=== PATIENT | female | born 1950 | race Caucasian/White ===

== ENCOUNTER 2018-10-17 17:12 | Emergency (ER) | payer MEDICARE, OTHER ==
[~2018-10-17] VITALS: Ht 162.6 cm; Wt 63.5 kg
[2018-10-17 17:17] VITALS: BP 125/76
--- NOTE | 2018-10-17 17:39 | NUR ---
CALLED THE OFFICE OF DR KING AND PAGE WAS SENT OUT.
--- NOTE | 2018-10-17 17:48 | NUR ---
PT S[facility] HERE [facility] FOR POSS PICC LINE SITE INFECTION ON RADHA. PT AAOX4, VSS. DENIES SOB, DIZZINESS, N/V, WEAKNESS @ THIS TIME. PT SEEN & EVAL'D BY DR. LEE. WILL CONT TO MONITOR.
--- NOTE | 2018-10-17 18:54 | NUR ---
PT REFUSED TO REPLACE PICC LINE ONLY REMOVAL, DR. LEE AWARE.
[2018-10-17] MEDS ORDERED: HYDROCODONE/APAP 10/325MG 1 EA TABLET PO ONE (19:00)
--- NOTE | 2018-10-17 19:09 | NUR ---
CALLED TRANSPORT ETA IS 2115 PER [facility] TRIP NUMBER [id number]
--- NOTE | 2018-10-17 19:25 | NUR ---
REMOVED 38 CM PICC LINE IN RADHA, PT HERO WELL. PICC LINE TIP INTACT, CUT & SENT TO LAB FOR CULTURE. Pressure and 4x4 applied to site & SECURED WITH KERLIX DRESSING. No bleeding noted.
--- NOTE | 2018-10-17 19:35 | NUR ---
PT LEFT AMA, REFUSED TO SIGN AMA FORM, DR. LEE AWARE.
--- NOTE | 2018-10-17 19:35 | NUR ---
PT LEFT VIA MD SHARI AWARE. PT STABLE, NAD NOTED UPON LEAVING ED & REFUSED TO SIGN ANY FORM.
== END 2018-10-17 19:40 | disposition left against medical advice (07) ==
LOC: ER 17:14
DX: T80.212A Local infection due to central venous catheter, initial encounter (principal); M19.90 Unspecified osteoarthritis, unspecified site; F32.9 Major depressive disorder, single episode, unspecified; I70.90 Unspecified atherosclerosis
CPT/HCPCS: 71045-TC; 87070-TC; A4606; A6402; C1751; Z7610

== ENCOUNTER 2022-07-04 12:02 | Emergency (ER) | payer MEDICARE, OTHER ==
[~2022-07-04] VITALS: Ht 172.7 cm; Wt 59.0 kg
--- NOTE | 2022-07-04 12:19 | NUR ---
BIBRA60 FROM SNF FOUND ON FLOOR PER STAFF. -KO LT FACIAL REDNESS & LT FA BRUISING. TACHY & WARM TO TOUCH PER EMS. GIVEN NS 500ML IN FIELD. PLACED ON BED, AAOX3, BREATHING EVEN AND UNLABORED SATURATING AT 96%RA.
--- NOTE | 2022-07-04 12:20 | NUR ---
LEASE ADMINISTRATION ANALYST AT BED SIDE
--- NOTE | 2022-07-04 13:05 | NUR ---
SWAB FOR COVID19 SENT TO LAB
[2022-07-04 13:17] LABS: BASOPHILS # (AUTO) 0.1 K/uL (0.0-0.2); BASOPHILS % (AUTO) 0.2 % (0.0-2.0); HEMATOCRIT 33 % (33-45); HEMOGLOBIN 10.3 g/dL (11.5-14.8); LYMPHOCYTES # (AUTO) 0.4 K/uL (0.8-4.8); LYMPHOCYTES % (AUTO) 1.9 % (20.0-44.0); MEAN CORPUSCULAR HGB CONC 31 g/dl (31.0-36.0); MEAN CORPUSCULAR VOLUME 78 fL (82-100); MONOCYTES # (AUTO) 0.9 K/uL (0.1-1.30); NEUTROPHILS # (AUTO) 21.1 K/uL (1.8-8.9); NEUTROPHILS % (AUTO) 93.9 % (43.0-81.0); PLATELET COUNT (AUTO) 452 K/uL (150-450); RED BLOOD CELL COUNT(AUTO) 4.24 MIL/uL (4.0-5.2); WHITE BLOOD COUNT (AUTO) 22.5 K/uL (4.3-11.0)
[2022-07-04 13:28] LABS: CALCIUM, SERUM 8.4 mg/dL (8.5-10.1); CREATININE 0.8 mg/dL (0.6-1.3); POTASSIUM 4.1 mmol/L (3.5-5.1)
--- NOTE | 2022-07-04 14:13 | NUR ---
[facility] CALLED FOR TRANSPORT ETA 90 MINS PER MARCO.
--- NOTE | 2022-07-04 15:45 | NUR ---
PATIENT DISCHARGE FLUME WORKER BY [facility] STAFF TO SNF IN A STABLE CONDITION
[2022-07-04 16:03] VITALS: BP 105/60
[2022-07-04] MEDS ORDERED: CRAN425C6 PO (18:35)
[2022-07-04] MEDS ORDERED: NA P133E RC (18:35)
[2022-07-04] MEDS ORDERED: HYDR4TAB57 PO ×3 (18:35)
[2022-07-04] MEDS ORDERED: ASCO-420 PO (18:35)
[2022-07-04] MEDS ORDERED: OMEG-167 PO (18:35)
[2022-07-04] MEDS ORDERED: LACT1CAP69 PO (18:35)
[2022-07-04] MEDS ORDERED: ASPI-1420 PO (18:35)
[2022-07-04] MEDS ORDERED: BISA10SU11 RC (18:35)
[2022-07-04] MEDS ORDERED: MAGN400O6 PO (18:40)
[2022-07-04] MEDS ORDERED: LIDO35.4 TP (18:40)
[2022-07-04] MEDS ORDERED: ASCO-352 PO (18:40)
[2022-07-04] MEDS ORDERED: NALO4SPR (18:40)
[2022-07-04] MEDS ORDERED: CALC1TAB30 PO (18:40)
[2022-07-04] MEDS ORDERED: CHOL100043 PO (18:40)
[2022-07-04] MEDS ORDERED: LIDO700A30 TP (18:40)
== END 2022-07-04 15:45 ==
LOC: ER 12:08
DX: Z04.3 Encounter for examination and observation following other accident (principal); Z91.81 History of falling; D72.829 Elevated white blood cell count, unspecified; R50.9 Fever, unspecified; Z20.822 Contact with and (suspected) exposure to COVID-19; K21.9 Gastro-esophageal reflux disease without esophagitis; M19.90 Unspecified osteoarthritis, unspecified site; Z88.6 Allergy status to analgesic agent; Z88.1 Allergy status to other antibiotic agents; Z88.0 Allergy status to penicillin; Z88.2 Allergy status to sulfonamides; Z88.8 Allergy status to other drugs, medicaments and biological substances; D50.9 Iron deficiency anemia, unspecified
CPT/HCPCS: 36415; 80048-TC; 85025-TC; C9803

== ENCOUNTER 2022-07-04 16:46 | Inpatient (IN) | payer MEDICARE, OTHER ==
[~2022-07-04] VITALS: Ht 152.4 cm; Wt 57.6 kg
--- NOTE | 2022-07-04 16:50 | NUR ---
BROUGHT BACK IN BY PA DUE TO "LETHARGIC" PER FACILITY STAFF SEEN EARLIER AFTER SHE WAS FOUND ON THE FLOOR. PLACED ON BED, AWAKE ALERT, RESPONDING TO VERBAL STIMULI, BREATHING EVEN AND UNLABORED SATURATING AT 95%.
--- NOTE | 2022-07-04 17:45 | NUR ---
PATIENT SERVICES MANAGER AT BED SIDE
[2022-07-04] MEDS: IV NS 0.9% 1,000 ML BAG IV ONE ×3 (17:55→20:00)
--- NOTE | 2022-07-04 18:11 | NUR ---
PATIENT TAKEN TO CT VIA JUNIOR
--- NOTE | 2022-07-04 18:29 | NUR ---
MOVE SHEET SUBMITTED.
[2022-07-04] MEDS ORDERED: NA P133E RC (18:35)
[2022-07-04] MEDS ORDERED: LACT1CAP69 PO (18:35)
[2022-07-04] MEDS ORDERED: ASPI-1420 PO (18:35)
[2022-07-04] MEDS ORDERED: BISA10SU11 RC (18:35)
[2022-07-04] MEDS ORDERED: HYDR4TAB57 PO ×3 (18:35)
[2022-07-04] MEDS ORDERED: OMEG-167 PO (18:35)
[2022-07-04] MEDS ORDERED: ASCO-420 PO (18:35)
[2022-07-04] MEDS ORDERED: CRAN425C6 PO (18:35)
[2022-07-04] MEDS ORDERED: CALC1TAB30 PO (18:40)
[2022-07-04] MEDS ORDERED: ASCO-352 PO (18:40)
[2022-07-04] MEDS ORDERED: NALO4SPR (18:40)
[2022-07-04] MEDS ORDERED: LIDO35.4 TP (18:40)
[2022-07-04] MEDS ORDERED: LIDO700A30 TP (18:40)
[2022-07-04] MEDS ORDERED: MAGN400O6 PO (18:40)
[2022-07-04] MEDS ORDERED: CHOL100043 PO (18:40)
--- NOTE | 2022-07-04 19:30 | NUR ---
URINE SAMPLE SENT TO LAB
--- NOTE | 2022-07-04 19:44 | NUR ---
RECHECKED TEMP.-103.9 DR PURDY AWARE COLD PACK APPLIED TO BOTH ARMPIT AND GROIN.
[2022-07-04 19:54] LABS: ALANINE AMINOTRANSFERASE 25 U/L (12-78); ALBUMIN 1.6 g/dL (3.4-5.0); ALKALINE PHOSPHATASE 91 U/L (46-116); ASPARTATE AMINOTRANSFERASE 35 U/L (15-37); CALCIUM, SERUM 8.6 mg/dL (8.5-10.1); CREATININE 0.9 mg/dL (0.6-1.3); GLUCOSE 125 mg/dL (74-106); TOTAL PROTEIN, SERUM 6.9 g/dL (6.4-8.2); UREA NITROGEN, BLOOD 7 mg/dL (7-18)
[2022-07-04 20:17] LABS: HEMATOCRIT 31 % (33-45); HEMOGLOBIN 9.9 g/dL (11.5-14.8); LYMPHOCYTES # (AUTO) 0.4 K/uL (0.8-4.8); LYMPHOCYTES % (AUTO) 2.1 % (20.0-44.0); MEAN CORPUSCULAR HGB CONC 32 g/dl (31.0-36.0); MEAN CORPUSCULAR VOLUME 76 fL (82-100); MONOCYTES # (AUTO) 0.5 K/uL (0.1-1.30); MONOCYTES % (AUTO) 3.2 % (2.0-12.0); NEUTROPHILS # (AUTO) 15.8 K/uL (1.8-8.9); NEUTROPHILS % (AUTO) 94.7 % (43.0-81.0); PLATELET COUNT (AUTO) 477 K/uL (150-450); RED BLOOD CELL COUNT(AUTO) 4.06 MIL/uL (4.0-5.2); WHITE BLOOD COUNT (AUTO) 16.7 K/uL (4.3-11.0)
[2022-07-04 20:23] LABS: BILIRUBIN,URINE NEGATIVE (NEGATIVE); COLOR,URINE YELLOW (YELLOW); LEUKOCYTE ESTERASE ,URINE NEGATIVE (NEGATIVE); NITRITE, URINE NEGATIVE (NEGATIVE); PROTEIN,URINE NEGATIVE (NEGATIVE); UGLUCOSE NEGATIVE (NEGATIVE)
[2022-07-04 21:30] LABS: POTASSIUM 3.8 mmol/L (3.5-5.1)
[2022-07-04 21:33] LABS: CARBON DIOXIDE 23 mmol/L (21-32); CHLORIDE 101 mmol/L (98-107); SODIUM SERUM 136 mmol/L (136-145)
--- NOTE | 2022-07-04 22:39 | NUR ---
REC'D VERBAL AUTH FROM JOEY TO ADMIT THE PATIENT UNDER OBSERVATION
[2022-07-04] MEDS ORDERED: BISACODYL SUPP (10 MG) 10 MG/SUPP.RECT SUPP.RECT RC PRN (23:30)
[2022-07-04] MEDS ORDERED: ASCORBIC ACID 500 MG TABLET PO PRN (23:30)
[2022-07-04] MEDS ORDERED: IV NS 0.9% 500 ML IV ONE (23:30)
[2022-07-04] MEDS ORDERED: ONDANSETRON HCL/PF 4 MG/2 ML VIAL IVP PRN (23:30)
--- NOTE | 2022-07-04 23:40 | NUR ---
PER [facility]ARA HOSPITALIST, PATIENT CAN GET ADMITTED TELE
--- NOTE | 2022-07-05 00:37 | NUR ---
TRIED TO GIVE REPORT TO HEMANT VARELA BUT PER ANOTHER STAFF, CN WILL CALL ME BACK FOR REPORT.
--- NOTE | 2022-07-05 00:48 | NUR ---
0048 Report received from [facility]OM[facility] HE[facility] NURSE PRACTITIONERHEMANT Brown with questions answered.
--- NOTE | 2022-07-05 00:49 | NUR ---
REPORT GIVEN TO PHILLIP KING.
--- NOTE | 2022-07-05 01:20 | NUR ---
0120 Admitted from ER 71 year old female via rney with Dx of Sepsis. Patient with eyes closed but responds to verbal commands. Totally dependent on all aspects of ADLs, and screams when touched lightly. Handled gently during care. Admission care rendered. Systems assessment done please see notes. Noted with big ulcer on left lower extremity and great toe. Right lower extremity noted with non blanchable redness. Cleansed wound with NS and covered with dry dressing and wrapped with kerlix. Total bed bath provided. Vital signs taken and recorded. Left lower extremity noted with edema. Elevated on pillows. Turned and repositioned. Flores catheter intact and with adequate amount of clear yellow urine. Kept comfortable. Called light placed within reach and instructed patient to call for assistance.
--- NOTE | 2022-07-05 01:30 | NUR ---
FC IN PLACE, PATENT AND INTACT. Addendum: 07/05/22 at 0434 by COLT LAM RN Amended: Links added.
--- NOTE | 2022-07-05 01:36 | NUR ---
TRANSFERRED PATIENT TO [facility].
--- NOTE | 2022-07-05 02:27 | NUR ---
ADMITTED A 71 YR OLD FEMALE WITH A DX OF SEPSIS. NO SOB. ON 02 AT 3LPM WITH AN O2 SAT OF 94%. CONFUSED AND AGITATED. ON TELE MONITOR READING SR WITH A HR OF 90'S TO 105. FC DRAINING CLEAR YELLOW URINE. TOOK PICTURES OF WOUNDS ON FILE. WOUND CLEANED AND DRESSING APPLIED. WOUND CARE CONSULT AND BILATERAL SOFT WRIST RESTRAINTS IN PLACE ORDERED. ALL BELONGINGS CHECKED AND RECORDED. SAFETY MEASURES IMPLEMENTED PER HOSPITAL PROTOCOLS, HOB ELEVATED, BED LOCKED IN LOWEST POSITION WITH SIDE RAILS UP X 2. CALL LIGHT WITHIN REACH. WILL CONTINUE PLAN OF CARE.
[2022-07-05 03:13] VITALS: BP 104/47
[2022-07-05] MEDS ORDERED: LINEZOLID RTU BAG 300 ML IV ONE (03:40)
[2022-07-05] MEDS: ENOXAPARIN SODIUM 40 MG/0.4 ML DISP.SYRIN SQ SCH ×2 (03:45→21:10)
[2022-07-05] MEDS: LINEZOLID RTU BAG 600 MG in PREMIX 1 EA IV SCH ×3 (03:46→21:06)
[2022-07-05 04:00] VITALS: BP 101/60
[2022-07-05] MEDS: IV NS 0.9% 1,000 ML IV PRN (06:02)
--- NOTE | 2022-07-05 06:40 | NUR ---
PT IN BED INTERMITTENTLY ASLEEP. NO SOB. ON 02 AT 3LPM WITH AN O2 SAT OF 94%. CONFUSED AND AGITATED. ON TELE MONITOR READING SR WITH A HR OF 90'S TO 105. FC DRAINING CLEAR YELLOW URINE. RFA IV ACCESS PATENT AND INFUSING NS AT 75ML/HR. SAFETY MEASURES IMPLEMENTED PER HOSPITAL PROTOCOLS, HOB ELEVATED, BED LOCKED IN LOWEST POSITION WITH SIDE RAILS UP X 2. CALL LIGHT WITHIN REACH. NO SOB. ON 02 AT 3LPM WITH AN O2 SAT OF 94%. CONFUSED AND AGITATED. ON TELE MONITOR READING SR WITH A HR OF 90'S TO 105. FC DRAINING CLEAR YELLOW URINE. TOOK PICTURES OF WOUNDS ON FILE. WOUND CARE CONSULT AND KIMBERLY SOFT WRIST RESTRAINTS IN PLACE ORDERED. ALL BELONGINGS CHECKED AND RECORDED. SAFETY MEASURES IMPLEMENTED PER HOSPITAL PROTOCOLS, HOB ELEVATED, BED LOCKED IN LOWEST POSITION WITH SIDE RAILS UP X 2. CALL LIGHT WITHIN REACH.
--- NOTE | 2022-07-05 07:56 | NUR ---
RN OPENING NOTES PT IN BED INTERMITTENTLY ASLEEP. NO SOB. ON 02 AT 3LPM WITH AN O2 SAT OF 94%. CONFUSED AND AGITATED. ON TELE MONITOR READING SR WITH A HR OF 90'S TO 105. FC DRAINING CLEAR YELLOW URINE. RFA IV ACCESS PATENT AND INFUSING NS AT 75ML/HR. SAFETY MEASURES IMPLEMENTED PER HOSPITAL PROTOCOLS, HOB ELEVATED, BED LOCKED IN LOWEST POSITION WITH SIDE RAILS UP X 2. CALL LIGHT WITHIN REACH. KIMBERLY SOFT WRIST RESTRAINTS IN PLACE ORDERED. WILL CONTINUE PLAN OF CARE ND ANTICIPATE NEEDS.
[2022-07-05 08:00] VITALS: BP 87/48
[2022-07-05] MEDS ORDERED: ACIDOPHILUS/BULGARICUS 1 EACH TAB.CHEW PO PRN (08:30)
[2022-07-05] MEDS: LIDOCAINE 5% (PATCH) 1 EA PATCH TP SCH (08:57)
[2022-07-05] MEDS: LIDOCAINE 5% OINT 35.44 GM TUBE TP SCH ×3 (08:57→21:07)
[2022-07-05] MEDS: ASPIRIN 81 MG TAB.CHEW GT SCH (08:57)
--- NOTE | 2022-07-05 10:52 | NUR ---
WOUND CARE CONSULT: PT REFUSED TO HAVE LOWER EXTREMITY DRESSINGS REMOVED. REVIEWED CHART AND ADMISSION PHOTOS WHICH INDICATE SIGNIFICANT LOWER EXTREMITY WOUNDS WITH REDNESS. SACRAL DEEP TISSUE IN EVOLUTION NOTED. DR HERNANDEZ AND DR LOVELACE CALLED FOR SURGICAL AND DPM CONSULTS. RECOMMENDATIONS MADE FOR SKIN PROTECTION. DISCUSSED WITH NURSING STAFF. FIRST STEP LOW AIRLOSS MATTRESS IS ON ORDER. MD IN AGREEMENT WITH PLAN OF CARE.
[2022-07-05 10:57] LABS: BASOPHILS # (AUTO) 0.1 K/uL (0.0-0.2); BASOPHILS % (AUTO) 0.6 % (0.0-2.0); HEMATOCRIT 32 % (33-45); HEMOGLOBIN 10.1 g/dL (11.5-14.8); LYMPHOCYTES # (AUTO) 0.4 K/uL (0.8-4.8); LYMPHOCYTES % (AUTO) 2.4 % (20.0-44.0); MEAN CORPUSCULAR HGB CONC 32 g/dl (31.0-36.0); MEAN CORPUSCULAR VOLUME 76 fL (82-100); MONOCYTES # (AUTO) 0.3 K/uL (0.1-1.30); MONOCYTES % (AUTO) 2.1 % (2.0-12.0); NEUTROPHILS % (AUTO) 94.9 % (43.0-81.0); PLATELET COUNT (AUTO) 323 K/uL (150-450); RED BLOOD CELL COUNT(AUTO) 4.19 MIL/uL (4.0-5.2); WHITE BLOOD COUNT (AUTO) 15.9 K/uL (4.3-11.0)
[2022-07-05] MEDS ORDERED: Z GUARD REMEDY 4 OZ OINT TP PRN (11:00)
[2022-07-05 11:09] LABS: CREATININE 0.9 mg/dL (0.6-1.3); MAGNESIUM 1.8 mg/dL (1.8-2.4); PHOSPHORUS 2.5 mg/dL (2.5-4.9)
[2022-07-05] MEDS: Z GUARD REMEDY 4 OZ OINT TP SCH (11:13)
[2022-07-05 11:43] LABS: POTASSIUM 2.6 mmol/L (3.5-5.1)
[2022-07-05 12:00] VITALS: BP 103/53
[2022-07-05] MEDS ORDERED: MEROPENEM 500 MG in IV NS 0.9% 50 ML IV ONE ×2 (12:00→13:00)
[2022-07-05] MEDS: NYSTATIN TOP POWDER 15 GM BOTTLE TP SCH ×2 (12:36→17:18)
[2022-07-05] MEDS ORDERED: LEVOFLOXACIN 750 MG /D5W 150ML 750 MG in PREMIX 1 EA IV SCH (13:00)
[2022-07-05] MEDS: LEVOFLOXACIN 750 MG /D5W 150ML 750 MG in PREMIX 1 EA IV SCH (13:20)
[2022-07-05] MEDS ORDERED: methylPREDNISolone SOD SUCC 125 MG/2ML VIAL IV PRN (14:00)
[2022-07-05] MEDS ORDERED: diphenhydrAMINE HCL 50 MG/ML VIAL IV PRN (14:00)
[2022-07-05] MEDS: POTASSIUM CL. PREMIX PERIPHER. 50 ML IV SCH ×4 (14:52→18:38)
[2022-07-05 16:00] VITALS: BP 112/49
[2022-07-05] MEDS: ENSURE CLEAR 237 ML LIQUID (MIX BERRY) PO SCH (17:18)
--- NOTE | 2022-07-05 19:00 | NUR ---
RN NOTE RECEIVED PATIENT IN BED, AO X 1, IN NO ACUTE DISTRESS, BREATHING UNLABORED, SATURATION AT 97% ON 3L VIA NC, ST ON THE MONITOR, HR IS 105. IV LINE AT RFA 20G PATENT AND FLUSHING WELL WITH NS AT 75 ML/HR. SOLIZ CATH DRAINING TO A CLEAR, YELLOW OUTPUT. B SOFT WRIST RESTRAINTS IN PLACE, SKIN AND CIRCULATION CHECKED AND ARE WNL. WOUND DRESSING AT BLE INTACT, MINIMAL SATURATION NOTED. SAFETY MEASURES IN PLACE, BED IS LOCKED AND AT LOWEST POSITION, BED ALARM ON, SIDE RAILS UP X 2, CALL LIGHT WITHIN REACH OF PATIENT. WILL CONT TO MONITOR AND REASSESS.
--- NOTE | 2022-07-05 19:11 | NUR ---
RN CLOSING NOTES PT IN BED INTERMITTENTLY ASLEEP. NO SOB. ON 02 AT 3LPM WITH AN O2 SAT OF 98%. CONFUSED AND AGITATED. ON TELE MONITOR READING SR WITH A HR OF 90'S TO 105. FC DRAINING CLEAR YELLOW URINE. RFA IV ACCESS PATENT AND INFUSING NS AT 75ML/HR. SAFETY MEASURES IMPLEMENTED PER HOSPITAL PROTOCOLS, HOB ELEVATED, BED LOCKED IN LOWEST POSITION WITH SIDE RAILS UP X 2. CALL LIGHT WITHIN REACH. KIMBERLY SOFT WRIST RESTRAINTS IN PLACE ORDERED. WILL ENDORSE TO NIGHTSHIFT RN FOR CONTINUATION OF CARE.
[2022-07-05 20:00] VITALS: BP 100/64
--- NOTE | 2022-07-05 21:31 | NUR ---
RN NOTE PT VERY AGITATED, KEPT SCREAMING AND KICKING TRYING TO GET LOOSE FROM RESTRAINTS, HR GOING UP >100. DR EMERY WAS NOTIFIED, ORDERS RECEIVED FOR ZYPREXA 5 MG IM X 1.
[2022-07-05] MEDS ORDERED: OLANZAPINE 10 MG VIAL IM ONE (22:00)
[2022-07-06] VITALS: BP 104/47
[2022-07-06 04:00] VITALS: BP 97/53
[2022-07-06] MEDS: IV NS 0.9% 1,000 ML IV PRN (04:44)
--- NOTE | 2022-07-06 06:27 | NUR ---
RN NOTE PT MORE ALERT NOW, VERIFIED WITH PATIENT IF SHE'S CONSENTING TO EXCISIONAL DEBRIDEMENT OF HER LEFT LEG, EDUCATED PATIENT REGARDING CURRENT STATUS OF HER WOUND. STATES SHE WANTS TO TALK TO MD FIRST BEFORE SHE DECIDES.
--- NOTE | 2022-07-06 07:01 | NUR ---
RN OPENING NOTES PT IN BED ASLEEP. NO SOB. ON 02 AT 3LPM WITH AN O2 SAT OF 97%. PER FINISHING WIRE SAWYER REPORT CONFUSED AND AGITATED. ON TELE MONITOR READING SR WITH A HR OF 90'S TO 105. FC DRAINING CLEAR YELLOW URINE. RFA IV ACCESS PATENT AND NS RUNNING AT 75ML/HR. SAFETY MEASURES IMPLEMENTED PER HOSPITAL PROTOCOLS, HOB ELEVATED, BED LOCKED IN LOWEST POSITION WITH SIDE RAILS UP X 2. CALL LIGHT WITHIN REACH. BILATERAL SOFT WRIST RESTRAINTS IN PLACE ORDERED. WILL CONTINUE TO MONITOR AND FALLOW POC.
[2022-07-06 08:00] VITALS: BP 93/53
[2022-07-06] MEDS: ENSURE CLEAR 237 ML LIQUID (MIX BERRY) PO SCH ×2 (08:03→17:56)
[2022-07-06] MEDS: ASPIRIN 81 MG TAB.CHEW GT SCH (08:08)
[2022-07-06] MEDS: LINEZOLID RTU BAG 600 MG in PREMIX 1 EA IV SCH ×2 (08:09→21:52)
[2022-07-06] MEDS: Z GUARD REMEDY 4 OZ OINT TP SCH (08:09)
[2022-07-06] MEDS: LIDOCAINE 5% (PATCH) 1 EA PATCH TP SCH (08:09)
[2022-07-06] MEDS: NYSTATIN TOP POWDER 15 GM BOTTLE TP SCH ×2 (08:18→16:53)
[2022-07-06] MEDS: LIDOCAINE 5% OINT 35.44 GM TUBE TP SCH ×3 (08:19→21:54)
[2022-07-06] MEDS: THERAHONEY GEL 1.5 OZ TUBE TP SCH (08:19)
[2022-07-06 12:00] VITALS: BP 100/65
[2022-07-06 14:41] LABS: BASOPHILS % (AUTO) 0.1 % (0.0-2.0); EOSINOPHILS % (AUTO) 0.1 % (0.0-6.0); HEMATOCRIT 32 % (33-45); HEMOGLOBIN 10.1 g/dL (11.5-14.8); LYMPHOCYTES # (AUTO) 0.6 K/uL (0.8-4.8); MEAN CORPUSCULAR HGB CONC 31 g/dl (31.0-36.0); MEAN CORPUSCULAR VOLUME 78 fL (82-100); MONOCYTES # (AUTO) 0.3 K/uL (0.1-1.30); MONOCYTES % (AUTO) 2.7 % (2.0-12.0); NEUTROPHILS # (AUTO) 11.3 K/uL (1.8-8.9); NEUTROPHILS % (AUTO) 92.1 % (43.0-81.0); PLATELET COUNT (AUTO) 276 K/uL (150-450); RED BLOOD CELL COUNT(AUTO) 4.13 MIL/uL (4.0-5.2); WHITE BLOOD COUNT (AUTO) 12.3 K/uL (4.3-11.0)
[2022-07-06 14:49] LABS: CALCIUM, SERUM 8.6 mg/dL (8.5-10.1); CREATININE 0.6 mg/dL (0.6-1.3); POTASSIUM 2.9 mmol/L (3.5-5.1)
[2022-07-06 16:00] VITALS: BP 125/75
[2022-07-06] MEDS ORDERED: MEROPENEM 1 G in IV NS 0.9% 100 ML IV ONE (16:00)
[2022-07-06] MEDS: HYDROMORPHONE HCL 2 MG TABLET PO PRN ×2 (16:42→20:45)
[2022-07-06] MEDS ORDERED: POTASSIUM CHLORIDE 20 MEQ POWDER PACKET PO STA (17:12)
--- NOTE | 2022-07-06 17:30 | NUR ---
RN NOTE PATIENT IS AT STABLE CONDITION, ORDER TO DISCHRGE RECEIVED , DISCHARGE INSTRUCTIONS PROVIDED TO THE PATIENT AND TO THE FAMILY ,FAMILY VERBALIZED UNDERSTANDING , PATIENT DISCHARGED FROM [facility].
--- NOTE | 2022-07-06 19:00 | NUR ---
RN NOTE RECEIVED PATIENT IN BED, AO X 3-4, IN NO ACUTE DISTRESS, BREATHING UNLABORED, SATURATION AT 97% ON ROOM AIR, ST ON THE MONITOR, HR IS 106. IV LINE AT RFA 20G AND L HAND 22G PATENT AND FLUSHING WELL WITH NS AT 75 ML/HR. SOLIZ CATH DRAINING TO A CLEAR, YELLOW OUTPUT. WOUND DRESSING AT BLE INTACT, MINIMAL SATURATION NOTED. SAFETY MEASURES IN PLACE, BED IS LOCKED AND AT LOWEST POSITION, BED ALARM ON, SIDE RAILS UP X 2, CALL LIGHT WITHIN REACH OF PATIENT. WILL CONT TO MONITOR AND REASSESS.
--- NOTE | 2022-07-06 19:04 | NUR ---
RN CLOSING NOTES PT IN BED INTERMITTENTLY ASLEEP. NO SOB. ON 02 AT 3LPM WITH AN O2 SAT OF 98%. CONFUSED AND AGITATED. ON TELE MONITOR READING SR FC DRAINING CLEAR YELLOW URINE. RFA IV ACCESS PATENT AND INFUSING NS AT 75ML/HR. SAFETY MEASURES IMPLEMENTED PER HOSPITAL PROTOCOLS, HOB ELEVATED, BED LOCKED IN LOWEST POSITION WITH SIDE RAILS UP X 2. CALL LIGHT WITHIN REACH. KIMBERLY SOFT WRIST RESTRAINTS IN PLACE ORDERED. WILL ENDORSE TO NIGHTSHIFT RN FOR CONTINUATION OF CARE.
[2022-07-06 20:00] VITALS: BP 95/47
[2022-07-06] MEDS: ENOXAPARIN SODIUM 40 MG/0.4 ML DISP.SYRIN SQ SCH (21:53)
[2022-07-07] VITALS: BP_SYST 95; BP_SYST 97; BP_DIAS 47; BP_DIAS 53
[2022-07-07] MEDS: HYDROMORPHONE HCL 2 MG TABLET PO PRN ×5 (01:14→22:16)
[2022-07-07 04:39] VITALS: BP 93/46
[2022-07-07] MEDS: IV NS 0.9% 1,000 ML IV PRN (05:26)
[2022-07-07 07:01] LABS: CREATININE 0.7 mg/dL (0.6-1.3)
[2022-07-07 07:03] LABS: BASOPHILS % (AUTO) 0.2 % (0.0-2.0); EOSINOPHILS % (AUTO) 0.1 % (0.0-6.0); HEMATOCRIT 34 % (33-45); HEMOGLOBIN 8.9 g/dL (11.5-14.8); LYMPHOCYTES # (AUTO) 0.5 K/uL (0.8-4.8); LYMPHOCYTES % (AUTO) 6.5 % (20.0-44.0); MEAN CORPUSCULAR HGB CONC 26 g/dl (31.0-36.0); MEAN CORPUSCULAR VOLUME 83 fL (82-100); MONOCYTES # (AUTO) 0.2 K/uL (0.1-1.30); MONOCYTES % (AUTO) 2.3 % (2.0-12.0); NEUTROPHILS # (AUTO) 7.3 K/uL (1.8-8.9); NEUTROPHILS % (AUTO) 90.9 % (43.0-81.0); PLATELET COUNT (AUTO) 244 K/uL (150-450); WHITE BLOOD COUNT (AUTO) 8.1 K/uL (4.3-11.0)
--- NOTE | 2022-07-07 07:30 | NUR ---
SAND OPERATOR OPENING NOTE PATIENT IS AWAKE, ALERT AND ORIENTED X3-4. PATIENT HAS PERIODS OF CONFUSION AND DISORIENTATION. PATIENT IS ON 3 LITERS PER MINUTE WITH AN OXYGEN SATURATION OF 96%. PATIENT IS ON TELE MONITOR CURRENTLY SINUS RHYTHM. SOLIZ CATHERHER DRAINING TO GRAVITY WITH CLEAR, YELLOW URINE. PATIENT HAS RIGHT FOREARM IV ACCESS. INTACT AND PATENT. PATIENT HAS SEVERAL BRUISES THROUGHOUT BODY. PATIENT ALSO HAS SEVERE REDNESS ON LEGS. ALL SAFETY MEASURES IN PLACE.
[2022-07-07 07:54] LABS: POTASSIUM 2.7 mmol/L (3.5-5.1)
[2022-07-07 08:00] VITALS: BP 84/41
--- NOTE | 2022-07-07 08:13 | NUR ---
notified to AYAH Coughlin patient's of potassium level was 2.7, b/p 90/52 waiting for returning call back
--- NOTE | 2022-07-07 08:30 | NUR ---
EXPLAINED TO PATIENT THAT DILAUDID CAN'T BE GIVEN DUE TO EXTREME LOW BP. EXPLAINED THE RISKS, BUT PATIENT IS UNCOOPERATIVE, SCREAMING AND CRYING. CARGO SERVICE AGENT AWARE
--- NOTE | 2022-07-07 08:30 | NUR ---
MORNING DILAUDID PRN ORAL DOSE NOT GIVEN TO PATIENT LOW BP 84/41 AND RECHECKED 90/52. NOTIFIED MADELINE NASSAR. MADELINE NASSAR AWARE
[2022-07-07] MEDS: LIDOCAINE 5% OINT 35.44 GM TUBE TP SCH ×3 (09:00→21:00)
[2022-07-07] MEDS ORDERED: POTASSIUM CHLORIDE 20 MEQ POWDER PACKET PO ONE ×3 (09:00→17:00)
[2022-07-07] MEDS: ASPIRIN 81 MG TAB.CHEW GT SCH (09:00)
--- NOTE | 2022-07-07 11:00 | NUR ---
NOTIFIED CEMENT TRUCK LOADER JENNY NASSAR THAT PATIENT IS ASKING FOR DILAUDID PO BUT HER BLOOD PRESSURE IS EXTREMLY LOW IN 80S AND 90S. NOTIFIED THAT PATIENT HAS A LOT OF ALLERGIES AND IS ALLERGIC TO TYLENOL. CEMENT TRUCK LOADER SAID NO MORE AND ONLY 1MG.
--- NOTE | 2022-07-07 11:30 | NUR ---
JENNY NASSAR ALSO SAID THAT PAIN MANAGEMENT DOCTOR WOULD SEE PATIENT.
[2022-07-07] MEDS: ENSURE CLEAR 237 ML LIQUID (MIX BERRY) PO SCH ×2 (13:00→17:32)
[2022-07-07] MEDS: LIDOCAINE 5% (PATCH) 1 EA PATCH TP SCH (13:04)
[2022-07-07] MEDS: THERAHONEY GEL 1.5 OZ TUBE TP SCH (13:07)
[2022-07-07] MEDS: NYSTATIN TOP POWDER 15 GM BOTTLE TP SCH ×2 (13:07→17:30)
[2022-07-07] MEDS: Z GUARD REMEDY 4 OZ OINT TP SCH (13:07)
[2022-07-07] MEDS: LEVOFLOXACIN 750 MG /D5W 150ML 750 MG in PREMIX 1 EA IV SCH (13:12)
[2022-07-07 16:00] VITALS: BP 105/61
--- NOTE | 2022-07-07 16:30 | NUR ---
PAIN MANAGEMENT DOCTOR JAMESADELFO MADE ROUNDS AND ORDERED 2 MG AND PUT PARAMETERS HOLD DILAUDID IF SYSTOLIC BLOOD PRESSURE IS < 90 AND DO NOT GIVE IF PATIENT IS SEDATED.
--- NOTE | 2022-07-07 17:00 | NUR ---
CHECKED BLOOD PRESSURE. BLOOD PRESSURE 105/61
--- NOTE | 2022-07-07 19:10 | NUR ---
RN NOTE RECEIVED PATIENT IN BED, AO X 3-4, IN NO ACUTE DISTRESS, BREATHING UNLABORED, SATURATION AT 98% ON ROOM AIR, SR ON THE MONITOR, HR IS 98. IV LINE AT RFA 20G AND L HAND 22G PATENT AND FLUSHING WELL WITH NS AT 75 ML/HR. SOLIZ CATH DRAINING TO A CLEAR, YELLOW OUTPUT. WOUND DRESSING AT BLE INTACT, MINIMAL SATURATION NOTED. SAFETY MEASURES IN PLACE, BED IS LOCKED AND AT LOWEST POSITION, BED ALARM ON, SIDE RAILS UP X 2, CALL LIGHT WITHIN REACH OF PATIENT. WILL CONT TO MONITOR AND REASSESS. Addendum: 07/07/22 at 2353 by COLIN ESPINOSA RN INCREASED ERYTHEMA WAS NOTED AT [facility], WILL REFER FOR WOUND CONSULT
[2022-07-07 20:00] VITALS: BP 95/53
[2022-07-07] MEDS: LINEZOLID 600 MG TABLET PO SCH (22:16)
[2022-07-07] MEDS: ENOXAPARIN SODIUM 40 MG/0.4 ML DISP.SYRIN SQ SCH (22:21)
[2022-07-08] VITALS: BP 95/53
[2022-07-08] MEDS: HYDROMORPHONE HCL 2 MG TABLET PO PRN ×7 (02:14→22:47)
[2022-07-08 04:00] VITALS: BP 102/68
--- NOTE | 2022-07-08 07:45 | NUR ---
WAREHOUSE ORDER PICKER OPENING NOTE PATIENT IS AWAKE, ALERT AND ORIENTED X3-4. PATIENT HAS PERIODS OF CONFUSION AND DISORIENTATION. PATIENT IS ON ROOM AIR,WITH AN OXYGEN SATURATION OF 96%. PATIENT IS ON TELE MONITOR CURRENTLY SINUS RHYTHM. SOLIZ CATHETER DRAINING TO GRAVITY WITH CLEAR, YELLOW URINE. PATIENT HAS LEFT HAND IV ACCESS.NS RUNNING AT 75 ML/HR. INTACT AND PATENT. PATIENT HAS SEVERAL BRUISES THROUGHOUT BODY. PATIENT ALSO HAS SEVERE REDNESS ON LEGS.BILATERAL LOWE EXTREMITIES OPEN WOUNDS ALL SAFETY MEASURES IN PLACE.WILLCONTINUE TO FALLOW POC
[2022-07-08 08:00] VITALS: BP 84/54
[2022-07-08] MEDS: ENSURE CLEAR 237 ML LIQUID (MIX BERRY) PO SCH ×2 (08:01→17:19)
[2022-07-08] MEDS ORDERED: Magnesium 1 GM/2 ML VIAL IV ONE ×2 (08:30→09:00)
[2022-07-08] MEDS: LIDOCAINE 5% (PATCH) 1 EA PATCH TP SCH (09:24)
[2022-07-08] MEDS: Magnesium 1GM/D5W 100ML PREMIX 100 ML IV SCH ×2 (09:24→10:17)
[2022-07-08] MEDS: POTASSIUM CHLORIDE 20 MEQ POWDER PACKET PO SCH ×3 (09:24→16:52)
[2022-07-08] MEDS: ASPIRIN 81 MG TAB.CHEW GT SCH (09:25)
[2022-07-08] MEDS: LINEZOLID 600 MG TABLET PO SCH ×2 (09:27→21:20)
[2022-07-08] MEDS: NYSTATIN TOP POWDER 15 GM BOTTLE TP SCH ×2 (09:29→17:26)
[2022-07-08] MEDS: Z GUARD REMEDY 4 OZ OINT TP SCH (09:29)
[2022-07-08] MEDS: THERAHONEY GEL 1.5 OZ TUBE TP SCH (09:29)
[2022-07-08] MEDS: LIDOCAINE 5% OINT 35.44 GM TUBE TP SCH ×3 (09:55→21:29)
[2022-07-08 11:29] LABS: BASOPHILS % (AUTO) 0.1 % (0.0-2.0); EOSINOPHILS % (AUTO) 0.3 % (0.0-6.0); HEMATOCRIT 29 % (33-45); HEMOGLOBIN 9.3 g/dL (11.5-14.8); LYMPHOCYTES # (AUTO) 0.6 K/uL (0.8-4.8); LYMPHOCYTES % (AUTO) 7.5 % (20.0-44.0); MEAN CORPUSCULAR HGB CONC 33 g/dl (31.0-36.0); MEAN CORPUSCULAR VOLUME 76 fL (82-100); MONOCYTES # (AUTO) 0.4 K/uL (0.1-1.30); MONOCYTES % (AUTO) 5.2 % (2.0-12.0); NEUTROPHILS # (AUTO) 6.7 K/uL (1.8-8.9); NEUTROPHILS % (AUTO) 86.9 % (43.0-81.0); PLATELET COUNT (AUTO) 220 K/uL (150-450); RED BLOOD CELL COUNT(AUTO) 3.77 MIL/uL (4.0-5.2); WHITE BLOOD COUNT (AUTO) 7.7 K/uL (4.3-11.0)
[2022-07-08 12:00] VITALS: BP 95/65
[2022-07-08 12:16] LABS: CALCIUM, SERUM 7.7 mg/dL (8.5-10.1); CREATININE 0.6 mg/dL (0.6-1.3); POTASSIUM 3.9 mmol/L (3.5-5.1)
--- NOTE | 2022-07-08 13:27 | NUR ---
RN NOTE PATIENT WAS TRANSFERED TO THE [facility] , REPORT WAS GIVEN TO THE RN YUAN
--- NOTE | 2022-07-08 13:30 | NUR ---
PATIENT TRANSFERRED FROM [facility] TO 3W/ROOM 325-2, REPORTED BY SHABANA. PATIENT AO X 2-3, CONFUSED, ADMIT DX IS SEPSIS. PATIENT REFUSED DRESSING CHANGE ON LOWER EXTREMITIES WOUND. RESPIRATORY EVEN AND UNLABORED ON ROOM AIR. SKIN IAS WAORM TO TOUCH, KEEP CLEAN/DRY, INTACT IV LINE. WILL CONTINUE TO MONITOR.
--- NOTE | 2022-07-08 14:47 | NUR ---
RN NOTE Patient complained of pain on her legs, arms, and shoulders. 8/10 on pain scale. PRN Dilaudid 2 mg PO given. Will continue to monitor.
[2022-07-08 16:15] VITALS: BP 90/56
--- NOTE | 2022-07-08 18:55 | NUR ---
RN CLOSING NOTE PATIENT IN BED RESTING. IN NO ACUTE DISTRESS NOTED. GIVEN PAIN MEDICATION DILAUDID 2MG PO Q 4 HOURS AT 1845. RESPIRATORY EVEN AND UNLABORED ON ROOM AIR. SKIN IS WARM TO TOUCH, KEEP CLEAN/DRY, INTACT IV LINE. PATIENT REFUSED WOUND CARE ON BILATERAL LOWER EXTREMITIES. KEPT ELEVATED HOB FOR ENSURE AIRWAY AND ASPIRATION PRECAUTION. BED IN LOWEST POSITION AND LOCKED. BED ALARM IS ON AT ALL THE TIMES. ALL SAFETY MEASURED IN PLACED. CALL LIGHT WITHIN REACH, WILL ENDORSED TO NEXT SHIFT.
[2022-07-08 20:34] VITALS: BP 139/86
[2022-07-08] MEDS: ENOXAPARIN SODIUM 40 MG/0.4 ML DISP.SYRIN SQ SCH (21:29)
--- NOTE | 2022-07-08 22:14 | NUR ---
RN OPENING NOTE PATIENT IN BED RESTING. IN NO ACUTE DISTRESS NOTED. PT A/O X3-4 WITH SOME EPISODES OF FORGETFULNESS/ CONFUSION AT TIMES. RESPIRATORY EVEN AND UNLABORED ON ROOM AIR. SKIN IS WARM TO TOUCH, KEEP CLEAN/DRY, INTACT IV LINE. PATIENT REFUSED WOUND CARE ON BILATERAL LOWER EXTREMITIES. KEPT ELEVATED HOB FOR ENSURE AIRWAY AND ASPIRATION PRECAUTION. BED IN LOWEST POSITION AND LOCKED. BED ALARM IS ON AT ALL THE TIMES. ALL SAFETY MEASURED IN PLACED. CALL LIGHT WITHIN REACH. Addendum: 07/09/22 at 0246 by EMILY SPAIN RN PT ORIENTED X2-3
--- NOTE | 2022-07-08 23:05 | NUR ---
RN NOTES PT REQUESTED PRN DILAUDID 2MG PROVIDED FOR PAIN 9/10 ON A NUMERIC PAIN SCALE. TRIED TO SEE IF PT WOULD BE WILLING TO CHANGE HER MATTRESS HER SPECIAL MATTRESS HAS ARRIVED. PT STATED " IF YOU BUY ME PAPA TAVERAS AND A COFFEE I WILL LET YOU CHANGE MY MATTRESS" EXPLAINED TO PT I CANNOT BUY HER FOOD BUT WE DO HAVE SNACKS SHE REFUSED THE SNACKS WE HAVE IN THE HOSPITAL. ALSO LET HER KNOW SHE CAN ORDER THE FOOD IF SHE WOULD LIKE BUT I CAN NOT BUY IT FOR HER. PT STARTED CRYING AND STATED " WHY CANT YOU JUST BUY ME A COFFEE AT LEAST !" PROVIDED COMFORT CARE AND CALMED PT DOWN. WILL SEE IF WE CAN CHANGE THE MATTRESS AT ANOTHER TIME.
[2022-07-09] MEDS: HYDROMORPHONE HCL 2 MG TABLET PO PRN ×4 (03:47→18:14)
--- NOTE | 2022-07-09 03:51 | NUR ---
RN NOTES PT REQUESTED PRN DILAUDID 2MG PROVIDED FOR PAIN 8/10 ON A NUMERIC PAIN SCALE. SBP 95/
--- NOTE | 2022-07-09 05:54 | NUR ---
RN NOTES WOUND CARE WAS DONE NEW MATTRESS WAS PLACED ON PTS BED. PT WAS VERY AGGRESSIVE AND DEFENSIVE AGAINST NURSING STAFF KEPT CLAIMING WE WERE TRYING TO TAKE HER PURSE AND CALLING HER NAMES SUCH " IDIOT". PTS BEHAVIOR WAS WITNESS BY MULTIPLE STAFF MEMBERS. ALL NEEDS WHERE MET. BEDSIDE TABLE WITHIN REACH. HOB ELEVATED REPOSITIONED FOR COMFORT BED BATH GIVEN, NEW SHEETS PROVIDED.
--- NOTE | 2022-07-09 06:42 | NUR ---
RN OPENING NOTE PATIENT IN BED RESTING. IN NO ACUTE DISTRESS NOTED. PT A/O X3-4 WITH SOME EPISODES OF FORGETFULNESS/ CONFUSION AT TIME. RESPIRATORY EVEN AND UNLABORED ON ROOM AIR. SKIN IS WARM TO TOUCH, KEEP CLEAN/DRY, INTACT IV LINE. PATIENT REFUSED WOUND CARE ON BILATERAL LOWER EXTREMITIES. KEPT ELEVATED HOB FOR ENSURE AIRWAY AND ASPIRATION PRECAUTION. BED IN LOWEST POSITION AND LOCKED. BED ALARM IS ON AT ALL THE TIMES. ALL SAFETY MEASURED IN PLACED. CALL LIGHT WITHIN REACH. WILL ENDORSE TO DAY SHIFT NURSE.
--- NOTE | 2022-07-09 07:30 | NUR ---
RN OPENING NOTE RECEIVED PATIENT IN BED RESTING. IN NO ACUTE DISTRESS NOTED. PT A/O X3-4 WITH SOME EPISODES OF FORGETFULNESS/ CONFUSION AT TIME. RESPIRATORY EVEN AND UNLABORED ON ROOM AIR. SKIN IS WARM TO TOUCH, KEEP CLEAN/DRY, INTACT IV LINE. KEPT ELEVATED HOB FOR ENSURE AIRWAY AND ASPIRATION PRECAUTION. BED IN LOWEST POSITION AND LOCKED. BED ALARM IS ON AT ALL THE TIMES. ALL SAFETY MEASURED IN PLACED. CALL LIGHT WITHIN REACH. WILL CONTINUE TO MONITOR.
[2022-07-09 08:00] VITALS: BP 92/62
[2022-07-09] MEDS: ENSURE CLEAR 237 ML LIQUID (MIX BERRY) PO SCH ×2 (08:00→17:21)
[2022-07-09] MEDS: ASPIRIN 81 MG TAB.CHEW GT SCH (09:00)
[2022-07-09] MEDS: LIDOCAINE 5% (PATCH) 1 EA PATCH TP SCH (09:00)
[2022-07-09] MEDS: LINEZOLID 600 MG TABLET PO SCH (09:00)
[2022-07-09] MEDS: LIDOCAINE 5% OINT 35.44 GM TUBE TP SCH ×2 (09:00→10:53)
[2022-07-09 09:44] LABS: BASOPHILS % (AUTO) 0.1 % (0.0-2.0); EOSINOPHILS % (AUTO) 0.9 % (0.0-6.0); HEMATOCRIT 28 % (33-45); HEMOGLOBIN 9.1 g/dL (11.5-14.8); LYMPHOCYTES # (AUTO) 0.7 K/uL (0.8-4.8); LYMPHOCYTES % (AUTO) 8.7 % (20.0-44.0); MEAN CORPUSCULAR HGB CONC 33 g/dl (31.0-36.0); MEAN CORPUSCULAR VOLUME 76 fL (82-100); MONOCYTES # (AUTO) 0.6 K/uL (0.1-1.30); MONOCYTES % (AUTO) 7.6 % (2.0-12.0); NEUTROPHILS # (AUTO) 6.6 K/uL (1.8-8.9); NEUTROPHILS % (AUTO) 82.7 % (43.0-81.0); PLATELET COUNT (AUTO) 214 K/uL (150-450); RED BLOOD CELL COUNT(AUTO) 3.69 MIL/uL (4.0-5.2); WHITE BLOOD COUNT (AUTO) 7.9 K/uL (4.3-11.0)
[2022-07-09 10:12] LABS: CALCIUM, SERUM 7.6 mg/dL (8.5-10.1); CARBON DIOXIDE 27 mmol/L (21-32); CHLORIDE 105 mmol/L (98-107); CREATININE 0.5 mg/dL (0.6-1.3); GLUCOSE 115 mg/dL (74-106); POTASSIUM 3.7 mmol/L (3.5-5.1); SODIUM SERUM 136 mmol/L (136-145); UREA NITROGEN, BLOOD 6 mg/dL (7-18)
[2022-07-09] MEDS: THERAHONEY GEL 1.5 OZ TUBE TP SCH (10:53)
--- NOTE | 2022-07-09 11:16 | NUR ---
WOUND CARE CONSULT: RECEIVED ANOTHER CONSULT FOR REDNESS RT LOWER LEG. DR LOVELACE FOLLOWING PT FOR LOWER EXTREMITIES. DEFER TO PODIATRY. DISCUSSED SKIN PROTECTION WITH NURSING STAFF. MD IN AGREEMENT WITH PLAN OF CARE.
[2022-07-09] MEDS ORDERED: LEVOFLOXACIN (250MG) 250 MG TABLET PO SCH (12:00)
[2022-07-09] MEDS: NYSTATIN TOP POWDER 15 GM BOTTLE TP SCH ×2 (12:59→17:22)
[2022-07-09] MEDS: Z GUARD REMEDY 4 OZ OINT TP SCH (13:00)
[2022-07-09] MEDS ORDERED: MEROPENEM 1 G in IV NS 0.9% 100 ML IV SCH (13:00)
[2022-07-09 16:00] VITALS: BP 95/48
--- NOTE | 2022-07-09 17:40 | NUR ---
RN NOTES CALLED [facility] BY PHONE NUMBER [phone] AND GAVE REPORT TO MAGGIE AT 1741 .
--- NOTE | 2022-07-09 18:30 | NUR ---
RN NOTES DISCHARGE PATIENT IN STABLE CONDITION WITH STABLE VITAL SIGNS. NO PAIN NOTED UPON DISCHARGE. NO DISTRESS NOTED. NO DISCOMFORT NOTED. PATIENT REFUSED PICTURES TAKEN FROM WOUNDS AND DRESSING CHANGE UPON DISCHARGE. ALL THE BELONGINGS ACCOUNTED AND SIGNED FOR. IV SITE KEPT FOR CONTINUATION OF IV ATB . ID BAND REMOVED. ALL NEEDS ATTENDED. KEPT PATIENT COMFORTABLE. SOLIZ CATHETER INTACT. PATIENT LEFT HOSPITAL IN STABLE CONDITION WITH STABLE VITAL SIGNS WITH AMBULANCE AT 1830. BRAKE REPAIRER HYDRAULIC JENNY NASSAR AND CHARGE NURSE DIAMOND AWARE OF THE DISCHARGE. THE ATB ORDER WAS FAXED TO PHARMACY PER JENNY .
== END 2022-07-09 18:30 | DRG 871 ==
LOC: ER 16:51 → TELE1 07-05 00:18 → MEDSG1 07-07 11:54 → MED 07-08 13:04
PROVIDERS: ADMIT Nurse Practitioner Acute Care; ATTEND Nurse Practitioner Acute Care
DX: A41.9 Sepsis, unspecified organism (principal); E43 Unspecified severe protein-calorie malnutrition; L03.116 Cellulitis of left lower limb; L03.115 Cellulitis of right lower limb; F05 Delirium due to known physiological condition; L97.929 Non-pressure chronic ulcer of unspecified part of left lower leg with unspecified severity; N39.0 Urinary tract infection, site not specified; Z20.822 Contact with and (suspected) exposure to COVID-19; F32.9 Major depressive disorder, single episode, unspecified; Z88.6 Allergy status to analgesic agent; Z79.899 Other long term (current) drug therapy; Z88.1 Allergy status to other antibiotic agents; Z88.0 Allergy status to penicillin; Z88.8 Allergy status to other drugs, medicaments and biological substances; Z79.82 Long term (current) use of aspirin; E88.09 Other disorders of plasma-protein metabolism, not elsewhere classified; I25.10 Atherosclerotic heart disease of native coronary artery without angina pectoris; K21.9 Gastro-esophageal reflux disease without esophagitis; M19.90 Unspecified osteoarthritis, unspecified site; Z87.11 Personal history of peptic ulcer disease; Z91.19 Patient's noncompliance with other medical treatment and regimen; G89.4 Chronic pain syndrome; S81.802A Unspecified open wound, left lower leg, initial encounter; X58.XXXA Exposure to other specified factors, initial encounter; Y92.9 Unspecified place or not applicable; G47.00 Insomnia, unspecified; F41.9 Anxiety disorder, unspecified; D63.8 Anemia in other chronic diseases classified elsewhere; I89.0 Lymphedema, not elsewhere classified; I87.2 Venous insufficiency (chronic) (peripheral); F39 Unspecified mood [affective] disorder; F11.10 Opioid abuse, uncomplicated; D50.9 Iron deficiency anemia, unspecified; E87.6 Hypokalemia; Z74.01 Bed confinement status; R26.9 Unspecified abnormalities of gait and mobility; L89.616 Pressure-induced deep tissue damage of right heel; W19.XXXA Unspecified fall, initial encounter; Y92.129 Unspecified place in nursing home as the place of occurrence of the external cause; L89.156 Pressure-induced deep tissue damage of sacral region; B96.20 Unspecified Escherichia coli [E. coli] as the cause of diseases classified elsewhere; B95.0 Streptococcus, group A, as the cause of diseases classified elsewhere
CPT/HCPCS: 36415; 70450-TC; 71045-TC; 72125-TC; 80048-TC; 80053-TC; 80061-TC; 83605-TC; 83735-TC; 84100-TC; 85025-TC; 86803; 87040-TC; 87070-TC; 87081-TC; 87086-TC; 87186-TC; 87806; 93970-TC; 94799-TC; A4216; A6253; A6403; G0378; J1650; J1956; J2020; J2185; J3475; J3480; J3490; J7030; J7040